=== PATIENT | female | born 1960 | race Caucasian/White ===

== ENCOUNTER 2017-04-08 10:43 | Outpatient (CLI) | payer OTHER ==
--- NOTE | 2017-04-09 09:21 | Mammography Report ---
DIGITAL BILATERAL SCREENING MAMMOGRAM: 04/08/2017 CLINICAL HISTORY: This is a 57-year-old female in for routine screening mammogram. Patient has no f amily history of breast cancer. Patient had a benign right breast biopsy about eight years ago. COMPARISON: 02/15/2014, 02/19/2015, 04/07/2016 TECHNIQUE: Craniocaudad and oblique lateral views of each breast were obtained with [facility] digital mammography. To compliment the exam, axillary exaggerated craniocaudad views were obtaine d. FINDINGS: Heterogeneously dense breasts are noted. There is a small surgical clip noted on a small mass in the inner inferior aspect of the right breast. Patient had a minimally invasive biopsy of th is mass. This most likely represented patient's benign breast biopsy done eight years ago. The mass measures 0.9 cm. It most likely represents a benign noncalcified fibroadenoma. It has been seen on multiple preceding mammograms dated as far back as 02/26/2014 without significant change. A second mass is noted on craniocaudad view in the outer half of the anterior portion of the right br east. This has been seen on preceding mammograms. It measures 0.6 cm. It is unchanged. It may rep resent a small benign cyst or fibroadenoma. On the routine craniocaudad view, there is a density sandrine ng the posterolateral aspect of the right breast. On axillary exaggerated view, this is shown to rep resent a benign summation shadow. There is an area of prominent stranding on oblique lateral view of the right breast in the posterior aspect of the upper half of this breast. Recommend patient return for coned-down compression oblique lateral view and a mediolateral view of the right breast for furt her evaluation. If indicated, a right breast ultrasound could be obtained. There is a small mass in the inner aspect of the posterior portion of the right breast. This has been seen on preceding mamm ograms. It measures a few millimeters in diameter and is unchanged. Left breast shows no significant clusters of calcification or masses. No change is noted. IMPRESSION: 1. THREE SMALL BENIGN-APPEARING MASSES ARE ONCE AGAIN NOTED IN THE RIGHT BREAST AND UNCHANGED. THE LARGEST ONE OF THESE IS LOCATED IN THE INNER INFERIOR QUADRANT OF THE RIGHT BREAST AND HAS UNDERGONE A PREVIOUS STEREOTACTIC BREAST BIOPSY. 2. INTERVAL APPEARANCE OF A PROMINENT AREA OF STRANDING IN THE UPPER POSTERIOR ASPECT OF THE RIGHT B REAST, ONLY NOTED ON OBLIQUE LATERAL VIEW. RECOMMEND PATIENT RETURN FOR ADDITIONAL VIEWS OF THE RIGH T BREAST AND IF INDICATED, A RIGHT BREAST ULTRASOUND. BIRADS CATEGORY 0 - INCOMPLETE. NEEDS ADDITIONAL IMAGING EVALUATION. ADDITIONAL VIEWS OF THE RIGHT BREAST AND IF INDICATED, A RIGHT BREAST ULTRASOUND. STANDARD QUALIFYING STATEMENTS 1. This examination was reviewed with the aid of Computer-Aided Detection (CAD). 2. A negative or benign imaging report should not delay biopsy if clinically suspicious findings are present. Consider surgical consultation if warranted. More than 5% of cancers are not identified by i maging. 3. Dense breasts may obscure an underlying neoplasm. JOB #: [id number] EXT JOB #:[id number]
== END 2017-04-08 10:44 | disposition home or self-care (01) ==
LOC: DI 10:43
PROVIDERS: ATTEND Physician Assistant Medical
DX: Z12.31 Encounter for screening mammogram for malignant neoplasm of breast (principal); N63 Unspecified lump in breast; R92.8 Other abnormal and inconclusive findings on diagnostic imaging of breast
CPT/HCPCS: 77067

== ENCOUNTER 2017-04-21 13:41 | Outpatient (CLI) | payer OTHER | END 2017-04-21 13:42 | disposition home or self-care (01) | DX: N63 Unspecified lump in breast (principal) ==

== ENCOUNTER 2018-06-27 12:40 | Outpatient (CLI) | payer OTHER ==
--- NOTE | 2018-07-08 19:03 | Mammography Report ---
Reason: SCREENING MAMMO Procedure Date: 06/27/2018 Accession Number: [id number] / [id number] Procedure: ALEX - Screening Mammo Dig Bilat CPT Code: FULL RESULT: EXAM: Screening Mammo Dig Bilat DATE: 06/27/2018 1:16 PM CLINICAL HISTORY: 58-year-old female with history of early menses. TECHNIQUE: Bilateral CC and MLO views were obtained. COMPARISON: 04/21/2017, 04/08/2017, 04/07/2016, 02/19/2015. FINDINGS: The breasts demonstrate heterogeneously dense fibroglandular parenchyma bilaterally. Postbiopsy changes are seen in the right breast. No suspicious masses, clustered microcalcifications, or regions of architectural distortion are identified. IMPRESSION: Benign findings RECOMMENDATION: Routine annual screening unless otherwise clinically indicated. BIRADS CATEGORY 2: Benign findings STANDARD QUALIFYING STATEMENTS: 1. This examination was not reviewed with the aid of Computer-Aided Detection (CAD). 2. A negative or benign imaging report should not delay biopsy if clinically suspicious findings are present. Consider surgical consultation if warrented. More than 5% of cancers are not identified by imaging. 3. Dense breasts may obscure an underlying neoplasm. 4. This examination was reviewed with the aid of 3D imaging (tomography).
== END 2018-06-27 12:41 | disposition home or self-care (01) ==
LOC: DI 12:40
PROVIDERS: ATTEND Physician Assistant Medical
DX: Z12.31 Encounter for screening mammogram for malignant neoplasm of breast (principal)
CPT/HCPCS: 77063; 77067

== ENCOUNTER 2018-06-27 12:43 | Outpatient (CLI) | payer OTHER ==
--- NOTE | 2018-06-28 11:19 | DEXA Report ---
Reason: BONE DISORDER Procedure Date: 06/27/2018 Accession Number: [id number] / [id number] Procedure: DEX - Dexa Spine and/or Hip CPT Code: FULL RESULT: EXAM: Dexa Spine and/or Hip DATE: 06/27/2018 1:44 PM CLINICAL HISTORY: BONE DISORDER TECHNIQUE: Dual energy x-ray absorptiometry (DXA) was performed on a [employer] System. Regions measured are the AP Spine, femoral neck, and if needed forearm. COMPARISON: 04/07/2016. In accordance with the International Society for Clinical Densitometry (ISCD) guidelines, data from previous exams may be reanalyzed using current recommendations and techniques. This is done to allow a more accurate basis for comparison with the current study. FINDINGS: The data for the lumbar spine is as follows: BMD (g/cm/cm) T-SCORE Z-SCORE REGION L1 0.641 -4.1 -3.2 L2 0.704 -4.1 -3.2 L3 0.641 -4.7 -3.7 L4 0.639 -4.7 -3.8 TOTAL 0.655 -4.4 -3.5 NOTE: All evaluable vertebrae are used for classification The data for the hip is as follows: BMD (g/cm/cm) T-SCORE Z-SCORE REGION Neck 0.655 -2.8 -1.7 TOTAL 0.693 -2.5 -1.8 NOTE: The femoral neck or total proximal femur, whichever is lowest, is used for classification. DXA RESULTS SUMMARY: Spine SCAN DATE [age]GE BMD CHANGE VS CHANGE VS PREVIOUS PREVIOUS % 7/27/2018 [age] 0.655 -0.022 -3.2 04/07/2016 [age] 0.677 * Denotes significant change at the 95% confidence level. Denotes dissimilar scan types or analysis methods. DXA RESULTS SUMMARY: Hip SCAN DATE AGE BMD CHANGE VS CHANGE VS PREVIOUS PREVIOUS % [birth year]27/2018 58.3 0.693 -0.011 -1.6 04/07/2016 56.1 0.704 * Denotes significant change at the 95% confidence level. Denotes dissimilar scan types or analysis methods. IMPRESSION: THE WHO CLASSIFICATION BASED ON THE INTERNATIONAL REFERENCE STANDARD IS OSTEOPOROSIS. THE FRACTURE RISK IS INCREASED. RECOMMENDATION: Patients with diagnosis of osteoporosis or osteopenia should have regular bone mineral density assessment. For those eligible for Medicare, routine testing is allowed once every 2 years. Testing frequency can be increased for patients who have rapidly progressing disease or for those who are receiving medical therapy to restore bone mass. COMMENT: World Health Organization (WHO) definitions for osteoporosis and osteopenia: NORMAL BMD: T-score at -1.0 or higher, fracture risk is low OSTEOPENIA BMD: T-score between -1.0 and -2.5, fracture risk is increased. OSTEOPOROSIS BMD: T-score at -2.5 or lower, fracture risk is high. National Osteoporosis Foundation recommends: 1. Obtain adequate dietary calcium (at least 1200 mg per day) and vitamin D (400-800 international units per day). 2. Participate, as appropriate, in regular weightbearing and muscle-strengthening exercise. 3. Avoid tobacco use and reduce alcohol and caffeine intake. 4. For more detailed information see the website at www.NOF.org.
== END 2018-06-27 12:44 | disposition home or self-care (01) ==
LOC: DI 12:43
PROVIDERS: ATTEND Physician Assistant Medical
DX: M81.0 Age-related osteoporosis without current pathological fracture (principal)
CPT/HCPCS: 77063; 77080

== ENCOUNTER 2018-07-11 10:43 | Outpatient (CLI) | payer OTHER ==
--- NOTE | 2018-07-11 17:06 | CT Report ---
Reason: TOBACCO USER Procedure Date: 07/11/2018 Accession Number: [id number] / [id number] Procedure: CT - Chest/Lung Screen Low Dose W/O CPT Code: FULL RESULT: EXAM CT LUNG SCREEN EXAM DATE: 07/11/2018 11:02 AM. HISTORY: 58-year-old patient with [id number] smoking history. Currently smoking: Yes. Years since quitting: N/A. COMPARISON: None. TECHNIQUE: CT examination of the entire thorax without contrast was performed using low-dose technique. Thin section coronal, axial, sagittal and MIP axial images were obtained. In accordance with CT protocol optimization, one or more of the following dose reduction techniques were utilized for this exam: automated exposure control, adjustment of mA and/or KV based on patient size, or use of iterative reconstructive technique. FINDINGS: Nodules: Right upper lobe: Subpleural 4 mm solid nodule (4/79). 4 mm central right upper lobe solid nodule (4/62). Right middle lobe: None. Right lower lobe: None. Left upper lobe: None. Left lower lobe: None. Emphysema: Mild apical predominant paraseptal emphysema. Pleura: Unremarkable. Aorta: Unremarkable. Mediastinum: Ectatic/mildly aneurysmal ascending thoracic aorta measuring up to 41 mm. Mild scattered atherosclerotic calcifications. Coronary calcifications: None. Other pulmonary findings: Mild subsegmental atelectasis or scarring, minimal bronchiectasis at the lung bases bilaterally. Other extrapulmonary findings: Small fat-containing bilateral Bochdalek hernias. IMPRESSION: 1. Two small indeterminate right upper lobe nodules measuring up to 4 mm. 2. Other findings as noted above. Lung-RADS ASSESSMENT CATEGORY: 2 - Benign appearance or behavior. Probability of malignancy: <1% RECOMMENDATION: Continue annual screening with low-dose chest CT in 12 months. RADIA
== END 2018-07-11 10:44 | disposition home or self-care (01) ==
LOC: DI 10:43
PROVIDERS: ATTEND Physician Assistant Medical
DX: Z12.2 Encounter for screening for malignant neoplasm of respiratory organs (principal); R91.8 Other nonspecific abnormal finding of lung field; J43.9 Emphysema, unspecified; I71.2 Thoracic aortic aneurysm, without rupture; F17.210 Nicotine dependence, cigarettes, uncomplicated; J47.9 Bronchiectasis, uncomplicated

== ENCOUNTER 2018-07-19 09:51 | Outpatient (CLI) | payer OTHER ==
[2018-07-19 13:21] LABS: BASOPHILS % (AUTO) 0.3 %; EOSINOPHILS # (AUTO) 0.1 10^3/uL (0.0-0.7); HGB - HEMOGLOBIN 13.8 g/dL (12.0-16.0); LYMPHOCYTES # (AUTO) 1.9 10^3/uL (1.5-3.5); LYMPHOCYTES % (AUTO) 32.2 %; MEAN CORPUSCULAR HEMOGLOBIN 32.4 pg (27.0-31.0); MEAN CORPUSCULAR HGB CONC 33.8 g/dL (32.0-36.0); MEAN CORPUSCULAR VOLUME 95.7 fL (81.0-99.0); MEAN PLATELET VOLUME 12.6 fL (7.9-10.8); MONOCYTES # (AUTO) 0.4 10^3/uL (0.0-1.0); MONOCYTES % (AUTO) 6.3 %; NEUTROPHILS # (AUTO) 3.4 10^3/uL (1.5-6.6); NEUTROPHILS % (AUTO) 59.2 %; PLT - PLATELET COUNT 225 10^3/uL (130-450); RED BLOOD COUNT 4.27 10^6/uL (4.20-5.40); RED CELL DISTRIBUTION WIDTH 12.8 % (12.0-15.0); WHITE BLOOD COUNT 5.8 x10^3/uL (4.8-10.8)
[2018-07-19 14:16] LABS: ALBUMIN 4.3 g/dL (3.2-5.5); ALBUMIN/GLOBULIN RATIO 1.6 (1.0-2.2); ALKALINE PHOSPHATASE 69 IU/L (42-121); ALT ALANINE AMINOTRANSFERASE 36 IU/L (10-60); AST ASPARTATE AMINOTRANSFERASE 28 IU/L (10-42); BILIRUBIN,TOTAL 0.6 mg/dL (0.2-1.0); BUN - BLOOD UREA NITROGEN 19 mg/dL (6-20); CALCIUM 9.6 mg/dL (8.5-10.3); CARBON DIOXIDE - CO2 28 mmol/L (21-32); CHLORIDE 101 mmol/L (101-111); CHOL/HDL RATIO 4.4 (<4.4); CHOLESTEROL 230 mg/dL; CREATININE 0.8 mg/dL (0.4-1.0); GFR - MDRD 74 (>89); GLUCOSE 92 mg/dL (70-100); HDL CHOLESTEROL 52 mg/dL; LDL CHOLESTEROL,CALCULATED 153 mg/dL; LDL/HDL RATIO 2.9 (<4.4); SODIUM 139 mmol/L (135-145); VLDL CHOLESTEROL 25 mg/dL
[2018-07-19 14:23] LABS: RBC MORPHOLOGY (MULTIPLE) NORMAL APPEARANCE (NORMAL)
[2018-07-19 14:24] LABS: PLATELET ESTIMATE, MANUAL NORMAL (130-450,000) (NORMAL)
== END 2018-07-19 09:52 ==
LOC: LAB.WCP 09:51
PROVIDERS: ATTEND Physician Assistant Medical
DX: Z00.00 Encounter for general adult medical examination without abnormal findings (principal)
CPT/HCPCS: 36415; 80053; 80061; 83721; 84443; 85025

== ENCOUNTER 2019-08-11 13:09 | Outpatient (CLI) | payer OTHER ==
--- NOTE | 2019-08-11 15:08 | Mammography Report ---
Reason: SCREENING MAMMO Procedure Date: 08/11/2019 Accession Number: [id number] / [id number] Procedure: ALEX - Screening Mammo w/Sarmad CPT Code: FULL RESULT: EXAM: Screening Mammo w/Sarmad DATE: 08/11/2019 1:59 PM CLINICAL HISTORY: Routine screening TECHNIQUE: (B) - Bilateral CC and MLO views were obtained. COMPARISON: 06/27/2018, 04/21/2017, 04/08/2017, 04/07/2016, 02/19/2015, 02/15/2014 PARENCHYMAL PATTERN: (D) - The breasts demonstrate heterogeneously dense fibroglandular parenchyma bilaterally. FINDINGS: No significant interval change. Postbiopsy changes right breast and nodularity bilaterally are stable. There are no new suspicious masses, calcifications, or areas of distortion. IMPRESSION: Negative examination. BI-RADS category 1. RECOMMENDATION: (ANNUAL) - Recommend routine annual screening mammography. BI-RADS CATEGORY: (1) - Negative. STANDARD QUALIFYING STATEMENTS: 1. This examination was not reviewed with the aid of Computer-Aided Detection (CAD). 2. A negative or benign imaging report should not preclude biopsy if clinically suspicious findings are present. 3. Dense breasts may obscure an underlying neoplasm. 4. This examination was reviewed with the aid of 3D breast imaging (tomosynthesis).
== END 2019-08-11 13:10 | disposition home or self-care (01) ==
LOC: DI 13:09
DX: Z12.31 Encounter for screening mammogram for malignant neoplasm of breast (principal)
CPT/HCPCS: 77063; 77067